=== PATIENT | female | born 1955 | race Caucasian/White ===

== ENCOUNTER → 2020-12-01 | Outpatient (CLI) | payer OTHER | LOC: M.LAB 15:41 | PROVIDERS: ATTEND Internal Medicine Critical Care Medicine | DX: R06.02 Shortness of breath (principal) ==

== ENCOUNTER → 2020-12-15 | Outpatient (CLI) | payer OTHER | LOC: M.CT 11:00 | PROVIDERS: ATTEND Internal Medicine Critical Care Medicine | DX: R91.8 Other nonspecific abnormal finding of lung field (principal) ==

== ENCOUNTER → 2021-04-25 | Outpatient (CLI) | payer OTHER ==
--- NOTE | 2021-05-15 21:08 | SLEEP ---
[place] [address] SLEEP STUDY REPORT Name: JAYDAGloriaITZEL Lacey Room: [facility]#: [id number] Admission: 04/25/21 Attend Phys: Huang Llanes MD Discharge: Date of : 53 Report #: [id number] THIS REPORT FOR: cc: Lisbeth Mccormick NP, Elizabeth NP Pervez, Adeel MD ~ DATE OF STUDY: 04/26/2021 HOME SLEEP STUDY INTERPRETATION: Total duration of the study is 486 minutes. During this time duration, we recorded multiple sleep related respiratory events, most of these were obstructive apneas. A total of 35 obstructive apneas in addition to 1 central apnea and 20 hypopneas were recorded. Overall, apnea-hypopnea index is 6.9. Body position data indicates the patient was observed in the supine position for 234 minutes, the rest of the time the patient was on the right side. Events did appear to be more common when lying supine. Mean heart rate during the sleep study was 75. We did record multiple desaturations, but O2 saturation was mostly maintained at or above 90%. The patient spent only 0.8 minutes below an O2 saturation of 90%. IMPRESSION: Mild obstructive sleep apnea with an apnea-hypopnea index of 6.9. Events are more common when the patient is lying supine. RECOMMENDATIONS: Recommend considering positive airway pressure therapy. Clinical correlation is advised regarding whether a CPAP auto titrated device was initiated or a repeat sleep study in the sleep lab for positive airway pressure titration was performed. In some selected patients, the use of a mandibular advancement device can also be considered. Recommend instructing the patient if not contraindicated to avoid sleeping supine and sleep on sides as much as possible. Recommend clinical correlation regarding whether weight loss should be advised. This entire sleep study was reviewed by board certified sleep physician. <ELECTRONICALLY SIGNED> By: Huang Llanes MD 05/15/212107 [id number] 2004Huang Llanes MD /nt
== END ==
LOC: M.PUL 04-20 10:30
PROVIDERS: ATTEND Internal Medicine Critical Care Medicine
DX: G47.33 Obstructive sleep apnea (adult) (pediatric) (principal); G47.10 Hypersomnia, unspecified; R09.02 Hypoxemia